=== PATIENT | female | born 1985 | race African-American/Black ===

== ENCOUNTER 2016-10-25 12:50 | Emergency (ER) | payer OTHER ==
[~2016-10-25] VITALS: Ht 157.5 cm; Wt 54.4 kg
--- NOTE | 2016-10-25 13:30 | NUR ---
pt seen by . Rapid strep collected and sent
--- NOTE | 2016-10-25 14:16 | NUR ---
Patient discharged to home in stable conditon. Written and verbal after care instructions given. Patient verbalizes understanding of instructions.
== END 2016-10-25 14:17 | disposition home or self-care (01) ==
LOC: ER 12:50
DX: J02.9 Acute pharyngitis, unspecified (principal); F12.10 Cannabis abuse, uncomplicated
CPT/HCPCS: 36415; 86403; 87070; A4663